=== PATIENT | female | born 1980 | race Caucasian/White ===

== ENCOUNTER 2018-12-01 08:35 | Emergency (ER) | payer OTHER, SELFPAY ==
[2018-12-01 08:39] VITALS: BP 200/102; PULSE 104; RESP 20; TEMP 37.8; O2SAT 98
--- NOTE | 2018-12-01 08:47 | ED.GENADUL_ITS ---
Discharge Plan Disposition Patient Disposition: HOME Condition: Good Discharge Details Chief Complaint: Urinary Clinical Impression: URI (upper respiratory infection), Dysuria Primary Care Provider: Patel Calvo ED Provider: Eloy Quintero Home Meds and New Rx's Prescriptions: New acetaminophen [Mapap Extra Strength] 500 MG tablet 1,000 mg PO Q6H 5 Days Qty: 60 RF: 0 cephalexin [Keflex] 500 mg capsule 500 mg PO BID Qty: 10 RF: 0 ibuprofen [Motrin IB] 200 MG tablet 600 mg PO Q6H 5 Days Qty: 60 RF: 0 No Action CENTRUM TABLET 1 EACH tablet 1 ea PO daily prn RF: 0 Discharge Instructions Instructions: Upper Respiratory Infection (ED), Dysuria (ED) Additional Instructions: Please hold off on taking the antibiotic for the next 48 hours. If you notice that your urinary pain continues during this time please go ahead and start the antibiotic however if you symptoms of urinary pain and upper respiratory symptoms improve over the next 48 hours do not take the antibiotic. If you notice any worsening of your symptoms, or any new symptoms such as vomiting, diarrhea, fever, chills, shortness of breath, chest pain, numbness, weakness, or fainting , please return immediately to the emergency department for reevaluation. Please follow up with your primary care provider as soon as possible for reassessment and reevaluation. As always, it was a pleasure participating in your medical care today. Referrals: Patel Calvo MD [Primary Care Provider] - Medical Decision Making This is a pleasant 38-year-old female who presents with 2 foci of complaints, one is URI-like symptoms as well as UTI symptoms. Upper respiratory symptoms show no signs or symptoms concerning for meningitis, URI-like symptoms are clinically consistent with influenza, we will check for this. We will give Tylenol and Motri she shows no signs of an acute abdomen. Additionally will check for urinary tract infection. I do feel her UTI symptoms are certainly complicated by her URI like symptoms. 9:22 AM Patient's influenza has returned negative, urinalysis shows minimal WBC elevation, but no nitrites or leuk esterase, I feel that it is inconsistent with notable UTI and definitely inconsistent with pyelonephritis. However because of her atypical combination of symptoms we will prescribe an antibiotic out of an abundance of precaution. Recommend that she hold off on taking this for the time being, if she noticed continuation or worsening of her urinary symptoms over the next 48 hours and she starts this. Otherwise recommend continued ibuprofen and Tylenol at home for control of fever, myalgias, and aches and pains. We have encouraged the patient to drink adequate fluids, and we discussed red flags which to return especially a concern for meningitis. I have extensively reviewed the treatment plan and discharge instructions with the patient and their family. I have addressed all patient concerns at this time. The patient and family was made aware of what symptoms to monitor for that would warrant a return to the emergency department. Discussed the plan with the patient and family, they demonstrate verbal understanding and agreement with our assessment and plan at this time. HPI General Date/Time Provider Initiated Documentation: 12/01/18 08:36 . HPI Narrative: This is a pleasant 38-year-old female with a past medical history of an appendectomy, , and urinary tract infection, last infection was greater than 6 months ago, and was positive for strep agalactiae. She presents today for 2 complaints of UTI symptoms and URI symptoms. Both of which began last evening. Patient states that she developed mild dysuria starting last night, minimal radiation to her flanks, she denies any history of kidney stones. She has mild burning, and she states that these symptoms are similar to her previous episodes of UTI in the past. She denies any other complaints in regards to this. In addition to this the patient complains of URI like symptoms that started last night, runny nose, cough, congestion, as well as mild fever. She has not taken any Tylenol or Motrin. She has had no vomiting or diarrhea. She is able to tolerate p.o. well. She has not gotten her flu shot this year. She denies any other complaints at this time. No other modifying factors. No recent surgery, no IV or illicit drug use, no pertinent family history. Related Data Home Medications Medication Instructions Recorded Confirmed Centrum Tablet 1 ea PO daily prn 08/14/13 12/01/18 acetaminophen [Mapap Extra 1,000 mg PO Q6H 5 Days #60 tab 12/01/18 Strength] cephalexin [Keflex] 500 mg PO BID #10 cap 12/01/18 ibuprofen [Motrin Ib] 600 mg PO Q6H 5 Days #60 tab 12/01/18 Previous Rx's Medication Instructions Recorded acetaminophen [Mapap Extra 1,000 mg PO Q6H 5 Days #60 tab 12/01/18 Strength] cephalexin [Keflex] 500 mg PO BID #10 cap 12/01/18 ibuprofen [Motrin Ib] 600 mg PO Q6H 5 Days #60 tab 12/01/18 Allergies Allergy/AdvReac Type Severity Reaction Status Date / Time Penicillins AdvReac Intermediate Nausea Verified 12/01/18 08:41 General Stated Complaint: Urinary DAVID: 3 Review of Systems Review of Systems All systems reviewed & are unremarkable except as noted in HPI and below PFSH Social History Smoking and Tabacco status: Never Exam Narrative Exam Narrative: 1.Const: Well-nourished, Well-developed, appearing stated age 2.Eyes: PERRL, no conjunctival injection, and symmetrical lids. 3.ENT: Atraumatic external nose and ears. Moist MM. Neck: Symmetric, trachea midline, No thyromegaly. No significant erythema in the posterior oropharynx. No tonsillar exudates. No tender cervical lymphadenopathy. Mild cobblestoning in the posterior oropharynx. Patient demonstrates good movement of cervical neck. There is no nuchal rigidity, no nuchal tenderness. Patient is able to flex the neck without any difficulty or significant pain. Negative Kernig's and Brudzinski sign. 4.CVS: +S1/S2, No murmurs or gallops. Peripheral pulses 2+ and equal in all e xtremities. Brisk capillary refill in all extremities. 5.RESP: Unlabored respiratory effort. Clear to auscultation bilaterally. No wheezes rales or rhonchi 6.GI: Soft, Nontender/Nondistended, No hepatosplenomegaly. No guarding or rebound. No abdominal tenderness to speak of. Mild left and right CVA tenderness. 7.MSK: Normocephalic/Atraumatic, Extremities w/o deformity or ttp No cyanosis or clubbing, Normal movement of all extremities 8.Skin: Warm, Dry. No rashes or lesions. 9.Neuro: audit consultant II-XII grossly intact. Sensation grossly intact, no focal neurologic deficits. 10.Psych: (AAO) x3. Appropriate mood and affect Course Vital Signs Temperature 37.8 C H 12/01/18 08:39 Pulse 104 H 12/01/18 08:39 Respiratory Rate 20 12/01/18 08:39 Blood Pressure 200/102 H 12/01/18 08:39 Pulse Oximetry 98 12/01/18 08:39 Temperature 37.8 C H 12/01/18 08:39 Temperature Source Temporal Artery Scan 12/01/18 08:39 Pulse 104 H 12/01/18 08:39 Respiratory Rate 20 12/01/18 08:39 Respiratory Effort Non-Labored 12/01/18 08:39 Blood Pressure 200/102 H 12/01/18 08:39 Blood Pressure Position Sitting 12/01/18 08:39 Pulse Oximetry 98 12/01/18 08:39 Oxygen Delivery Method Room Air 12/01/18 08:39 Oxygen Flow Rate 0 12/01/18 08:39 Pain Level 5 12/01/18 08:39
[2018-12-01 08:57] LABS: Bilirubin Negative (Negative); Blood Negative (Negative); Clarity Clear; Glucose Negative (Negative); Ketones Negative (Negative); Leukocyte Esterase Negative (Negative); Nitrite Negative (Negative); Specific Gravity 1.015 (1.005-1.025); Urobilinogen 0.2 EU/dL (Up TO 0.2)
[2018-12-01] MEDS: Acetaminophen 500 MG TAB 1000 MG PO (09:00)
[2018-12-01] MEDS: Ibuprofen 800 MG TAB PO (09:00)
[2018-12-01 09:14] LABS: Bacteria Few HPF (Negative); C & S Indicated? No; Casts Negative LPF (Negative); Crystals Negative HPF (Negative); Epithelial Cells Many HPF (Negative); Mucus Negative (Negative); RBC Negative (0-2); WBC 0-2 HPF (0-5)
[2018-12-01 09:25] VITALS: BP 170/99; PULSE 94; RESP 18; TEMP 38.8; O2SAT 96
[2018-12-01 18:48] VITALS: BP 155/90; PULSE 70; RESP 20; TEMP 36.8; O2SAT 98
== END 2018-12-01 09:34 | disposition home or self-care (01) ==
PROVIDERS: Emergency Provider Student in an Organized Health Care Education/Training Program; PCP Family Medicine
DX: R50.9 Fever, unspecified (principal); M79.10 Myalgia, unspecified site; R30.0 Dysuria; J06.9 Acute upper respiratory infection, unspecified; I10 Essential (primary) hypertension; Z87.440 Personal history of urinary (tract) infections
CPT/HCPCS: 81025; 87449; 99283; 81003; 81015

== ENCOUNTER 2018-12-03 06:56 | Emergency (ER) | payer OTHER, SELFPAY ==
[2018-12-03 07:06] VITALS: BP 169/112; PULSE 109; RESP 20; TEMP 38.5; O2SAT 96
--- NOTE | 2018-12-03 07:33 | DI.RAD_ITS ---
SYMPTOMS/DIAGNOSIS: COUGH, SHORTNESS OF BREATH, ? PNEUMONIA PA AND LATERAL CHEST: Comparison is made with [id number]. The cardiac and mediastinal contours have a normal appearance. The lungs are well inflated and clear. No infiltrate, effusion or pneumothorax is seen. IMPRESSION: Negative chest x-ray.
--- NOTE | 2018-12-03 07:39 | ED.GENADUL_ITS ---
Discharge Plan Disposition Patient Disposition: HOME Condition: Improving Discharge Details Chief Complaint: RespSymp Clinical Impression: Influenza Primary Care Provider: Patel Calvo ED Provider: Tommy Peacock Home Meds and New Rx's Prescriptions: New oseltamivir [Tamiflu] 75 mg capsule 75 mg PO BID 5 Days Qty: 10 RF: 0 Continued CENTRUM TABLET 1 EACH tablet 1 ea PO daily prn RF: 0 acetaminophen [Mapap Extra Strength] 500 MG tablet 1,000 mg PO Q6H 5 Days Qty: 60 RF: 0 cephalexin [Keflex] 500 mg capsule 500 mg PO BID Qty: 10 RF: 0 ibuprofen [Motrin IB] 200 MG tablet 600 mg PO Q6H 5 Days Qty: 60 RF: 0 Discharge Instructions Instructions: Influenza (ED) Additional Instructions: Frequent sips of fluids/popsicles to maintain hydration. Tylenol and/or Ibuprofen as needed for fever, aches and pains. Take Tamiflu as prescribed. Followup with regular doctor for recheck if not improving in 5-7 days. Return for any acute concerns. Medical Decision Making <Jane Vega DO - Last Filed: 12/03/18 08:18> 38-year-old female with a history of depression and hypertension who presents for fever, anterior chest pain, left upper and mid back pain, shortness of breath, pleuritic pain, sore throat, nausea and cough with white sputum for the past few days. She was seen here a few days ago for the same symptoms and diagnosed with URI and UTI but with indeterminate urinalysis and given Keflex for home if urinary symptoms or worsens. She states the urinary symptoms have since resolved. She has no DVT/PE risk factors. She has a temp of 101.3, heart rate of 109, blood pressure 169/112. She states she had been taking lisinopril in the past but stopped 2 years ago due to diet and weight control. Differential diagnosis includes pneumonia, influenza, PE, bronchitis, pharyngitis. As she had no lab work done 2 days ago and her symptoms are worsening, will place an IV, labs, urinalysis, d-dimer, rapid influenza again, rapid strep, chest x-ray and give a dose of Toradol, fluids Tylenol and albuterol neb and reassess. 0800 --case endorsed to Dr. Peacock to follow-up on labs and imaging. <Tommy Peacock MD - Last Filed: 12/03/18 09:39> REceived signout from Dr Vega. Patient with + Influenza. Remainder of diagnostics: Reassuring, negative d-dimer. Will treat with Tamiflu. Patient is improved, tolerating liquids and solids by mouth. ECG Data Attestation: I personally reviewed and interpreted this ECG (s) as follows: Interpretation: Sinus regular tachycardia with a rate of 110. HPI <Jane Vega DO - Last Filed: 12/03/18 08:18> General Mode of arrival: ambulatory . Date/Time Provider Initiated Documentation: 12/03/18 07:06 . Limitations to Documentation: no limitations . Information obtained by: patient . HPI Narrative: Patient is a 38-year-old female who presents with fever, back pain, chest pain, cough, shortness of breath and sore throat for the past 2 days. T-max 101.4 last night. Patient was seen here 2 days ago for the same complaint, had rapid influenza and diagnosed with URI/possible UTI with an indeterminate urinalysis and was sent home with Keflex for urinary symptoms worsened. Patient states her dysuria resolved but her left upper to mid back pain became worse. She states she did not start the Keflex. She states her chest pain is across her anterior chest, associated with shortness of breath, and worse when taking a deep breath. She also admits to some nausea with movement denies any vomiting or diarrhea. She also admits to sore throat and cough with white sputum. She states she has been eating and drinking okay. She denies any abdominal pain but states her abdomen feels full. She states her last dose of Tylenol was 8 PM last night. She denies any recent surgery, recent travel, leg pain or swelling or history of oral contraceptive use. Related Data Home Medications Medication Instructions Recorded Confirmed Centrum Tablet 1 ea PO daily prn 08/14/13 12/03/18 acetaminophen [Mapap Extra 1,000 mg PO Q6H 5 Days #60 tab 12/01/18 12/03/18 Strength] cephalexin [Keflex] 500 mg PO BID #10 cap 12/01/18 12/03/18 ibuprofen [Motrin IB] 600 mg PO Q6H 5 Days #60 tab 03/03/19 03/05/19 oseltamivir [Tamiflu] 75 mg PO BID 5 Days #10 cap 12/03/18 Previous Rx's Medication Instructions Recorded acetaminophen [Mapap Extra 1,000 mg PO Q6H 5 Days #60 tab 12/01/18 Strength] cephalexin [Keflex] 500 mg PO BID #10 cap 12/01/18 ibuprofen [Motrin IB] 600 mg PO Q6H 5 Days #60 tab 12/01/18 oseltamivir [Tamiflu] 75 mg PO BID 5 Days #10 cap 12/03/18 Allergies Allergy/AdvReac Type Severity Reaction Status Date / Time Penicillins AdvReac Intermediate Nausea Verified 12/03/18 07:09 General Stated Complaint: RespSymp DAVID: 3 Review of Systems <Jane Vega DO - Last Filed: 12/03/18 08:18> Review of Systems All systems reviewed & are unremarkable except as noted in HPI and below Constitutional Reports as per HPI, Reports chills and Reports fever(s) Eyes Denies blurry vision ENT Denies dizziness, Reports sore throat and Denies throat swelling Cardiovascular Denies chest pain and Denies dyspnea Respiratory Denies cough and Denies dyspnea Gastrointestinal Denies abdominal pain, Denies diarrhea and Denies vomiting Genitourinary Denies hematuria and Denies dysuria Musculoskeletal Denies back pain and Denies numbness Integumentary/Breasts Denies lesions and Denies rash Neurologic Denies dizziness, Denies focal weakness and Denies numbness Allergic/Immunologic Denies throat swelling PFSH <Jane Vega DO - Last Filed: 12/03/18 08:18> Medical History Depression (Chronic) HTN (hypertension) (Chronic) Surgical History H/O section (Chronic) History of appendectomy (Chronic) Social History Smoking and Tabacco status: Never alcohol intake: never substance use type: does not use Exam <Jane Vega DO - Last Filed: 12/03/18 08:18> Const General: cooperative and other (Appears uncomfortable) Orientation: alert and awake HENMT Head: normal to inspection Ears: hearing grossly normal bilaterally, external ears normal and TM's normal bilaterally General nose exam: external nose normal Face and sinus: normal facial exam Mouth: oral mucosae normal Teeth and gingiva: dentition normal Throat: posterior oropharynx normal Eyes General: appearance normal, both eyes and all related structures Eyelids: eyelids normal Pupils: PERRL EOM: EOM intact bilaterally Neck Neck: normal visual inspection Lymphatic: no lymphadenopathy noted Chest Chest: normal inspection of the chest Resp Effort & Inspection: normal respiratory effort and able to speak in complete sentences Auscultation: clear to auscultation bilaterally Cardio Rate: regular rate Rhythm: regular rhythm GI Inspection: normal to inspection Palpation: soft, not firm, no guarding, no hepatosplenomegaly, no masses and nontender Auscultation: normal bowel sounds Back/Spine/Pelvis Back: CVA tenderness (Left side) Skin General skin exam: no rashes or lesions noted Neuro General: alert and awake Cognition: normal cognition Speech: speech normal Gait: normal gait Motor: muscle tone normal throughout Sensory Exam: no sensory deficits noted Extrem General: normal to inspection, full ROM, normal capillary refill, no calf tenderness and no edema Psych Appearance: grossly normal Mental Status: mental status grossly normal Speech and Movement: speech and movement normal Affect: normal affect Thought Process: normal Course <Jane Vega, DO - Last Filed: 12/03/18 08:18> Vital Signs Temperature 101.3 F H 12/03/18 07:06 Pulse 109 H 12/03/18 07:06 Respiratory Rate 20 12/03/18 07:06 Blood Pressure 169/112 H 12/03/18 07:06 Pulse Oximetry 96 12/03/18 07:06 Temperature 101.3 F H 12/03/18 07:06 Temperature Source Skin 12/03/18 07:06 Pulse 109 H 12/03/18 07:06 Respiratory Rate 20 12/03/18 07:06 Respiratory Effort Non-Labored 12/03/18 07:11 Respiratory Depth Normal 12/03/18 07:11 Blood Pressure 169/112 H 12/03/18 07:06 Blood Pressure Position Sitting 12/03/18 07:06 Pulse Oximetry 96 12/03/18 07:06 Oxygen Delivery Method Room Air 12/03/18 07:06 Oxygen Flow Rate 0 12/03/18 07:06 Pain Level 6 12/03/18 07:06 Sign Out <Jane Vega DO - Last Filed: 12/03/18 08:18> Sign Out Data: Sign Out Comment: follow up on labs and imaging and final disposition Last updated by Jane Vega DO at 12/03/18 08:02
[2018-12-03] MEDS: Normal Saline 1,000 ML 1000 ML IV (07:55)
[2018-12-03 08:00] LABS: Bilirubin Negative (Negative); Blood Negative (Negative); Clarity Clear; Glucose Negative (Negative); Ketones Negative (Negative); Leukocyte Esterase Negative (Negative); Nitrite Negative (Negative); Urobilinogen 0.2 EU/dL (Up TO 0.2)
[2018-12-03] MEDS: Acetaminophen 500 MG TAB 1000 MG PO (08:03)
[2018-12-03] MEDS: Ketorolac 30 MG/ML VIAL IVP (08:03)
[2018-12-03 08:04] VITALS: RESP 1
[2018-12-03] MEDS: Albuterol/Ipratropium 3 ML UPD VIAL UPD (08:04)
[2018-12-03 08:11] LABS: Bacteria Few HPF (Negative); C & S Indicated? No; Casts Negative LPF (Negative); Crystals Negative HPF (Negative); Epithelial Cells Moderate HPF (Negative); Mucus Moderate (Negative); RBC Negative (0-2); WBC 0-2 HPF (0-5)
[2018-12-03 08:33] LABS: ALT 27 U/L (12-78); AST 36 U/L (15-37); Albumin 3.6 g/dL (3.4-5.0); Alkaline Phosphatase 78 U/L (46-116); Anion Gap 10.8 mmol/L (3-11); BUN 9 mg/dL (7-18); Bilirubin, Total 0.2 mg/dL (0.2-1.0); CO2 28.2 mmol/L (21.0-32.0); Calcium 8.3 mg/dL (8.5-10.1); Chloride 101 mmol/L (98-107); Glucose 107 mg/dL (70-100); Magnesium 1.9 mg/dL (1.8-2.4); Potassium 3.9 mmol/L (3.5-5.1); Sodium 140 mmol/L (136-145); Total Protein 7.7 g/dL (6.4-8.2)
[2018-12-03 08:34] VITALS: RESP 2
[2018-12-03 08:34] LABS: Troponin I < 0.02 ng/mL (0.00-0.06)
--- NOTE | 2018-12-03 08:38 | DI.VRAD_ITS ---
EXAM: XR Chest, 2 Views EXAM DATE/TIME: 12/03/2018 8:26 AM CLINICAL HISTORY: 38 years old, female; Signs and symptoms; Other: Cough, SOB R/O pneumonia TECHNIQUE: XR of the chest, 2 views. COMPARISON: CR CHEST 2 VIEWS PA,LAT 01/05/2017 2:05 PM FINDINGS: No airspace consolidation, pleural effusion or pneumothorax. The cardiomediastinal silhouette is unremarkable. IMPRESSION: No acute findings. Dictated and Authenticated by: Fermin Deluna MD. Ordering:BEA Lara MD
[2018-12-03 09:12] LABS: Abs Immature Grans 0.01 k/cumm (0.0-0.09); Absolute Basophil Count 0.02 k/cumm (0.0-0.2); Absolute Eosinophil Count 0.07 k/cumm (0.0-0.7); Absolute Lymphocyte Count 0.48 k/cumm (1.2-3.4); Absolute Neutrophil Count 3.55 k/cumm (1.2-6.7); Basophils % 0.4; Eosinophils % 1.5; HGB 11.1 g/dL (12.0-15.5); Immature Grans % 0.2; Lymphocytes % 10.1; Mean Corpuscular Hemoglobin 20.2 pg (27.0-33.0); Mean Corpuscular Volume 67.4 fL (80-95); Mean Platelet Volume 10.5 fL (8.0-11.0); Monocytes % 12.7; Neutrophils % 75.1; Platelet Count 325 x1000/uL (130-400); RBC 5.49 m/cumm (4.00-5.20); RBC Distribution Width 18.6 % (11.7-14.6); White Blood Cell Count 4.73 k/cumm (4.4-10.8)
[2018-12-03 09:27] LABS: Anisocytosis 1+; Diff Comment RBC Morph Reviewed; Hypochromasia 1+; Microcytosis 2+
[2018-12-03 09:28] LABS: Poikilocytes 1+
[2018-12-03 09:33] LABS: D-Dimer 425 ng/mlFEU (<500)
[2018-12-03 09:45] VITALS: BP 156/90; PULSE 111; RESP 16; TEMP 37.8; O2SAT 96
== END 2018-12-03 10:18 | disposition home or self-care (01) ==
PROVIDERS: Physician Assistant; Emergency Provider Emergency Medicine; PCP Family Medicine
DX: J10.1 Influenza due to other identified influenza virus with other respiratory manifestations (principal); I10 Essential (primary) hypertension
CPT/HCPCS: 36415; 80053; 81025; 87449; 87880; 93005; 94640; 96361; 96374; 99285; 71046; 81003; 81015; 83735; 84484; 85025; 85379; 87081; 93010; J1885; J7620

== ENCOUNTER 2022-03-28 02:32 | Outpatient (CLI) | payer OTHER, SELFPAY ==
[2022-03-28 08:26] LABS: Hemoglobin A1C 5.8 % (<5.7)
[2022-03-28 09:10] LABS: ALT 33 U/L (14-59); AST 22 U/L (15-37); Albumin 3.6 g/dL (3.4-5.0); Alkaline Phosphatase 63 U/L (46-116); Anion Gap 5.9 mmol/L (3-11); BUN 17 mg/dL (7-18); Bilirubin, Total 0.5 mg/dL (0.2-1.0); CO2 30.1 mmol/L (21.0-32.0); CREATININE 0.9 mg/dL (0.55-1.02); Calcium 8.6 mg/dL (8.5-10.1); Calculated LDL 102 mg/dL (<100); Chloride 103 mmol/L (98-107); Cholesterol 168 mg/dL (<200); Glucose 106 mg/dL (74-106); HDL Cholesterol 34 mg/dL (40-60); Potassium 4.1 mmol/L (3.5-5.1); Sodium 139 mmol/L (136-145); Triglyceride 162 mg/dL (<150)
== END 2022-03-28 02:33 | disposition home or self-care (01) ==
PROVIDERS: PCP Nurse Practitioner Family; Visit Provider Nurse Practitioner Family
DX: I10 Essential (primary) hypertension (principal); Z13.1 Encounter for screening for diabetes mellitus; Z13.220 Encounter for screening for lipoid disorders
CPT/HCPCS: 36415; 80053; 80061; 83036

== ENCOUNTER 2022-12-12 02:21 | Outpatient (CLI) | payer BC, SELFPAY ==
[2022-12-12 08:43] LABS: Estimated GFR 72.58 (mL/min/1.73m2); Potassium 4.3 mmol/L (3.5-5.1); TSH (W/Ref FT4) 1.57 uIU/mL (0.36-3.74)
== END 2022-12-12 02:22 | disposition home or self-care (01) ==
PROVIDERS: PCP Nurse Practitioner Family; Visit Provider Nurse Practitioner Family
DX: I10 Essential (primary) hypertension (principal); R53.83 Other fatigue; R73.03 Prediabetes
CPT/HCPCS: 36415; 82565; 83036; 84132; 84443

== ENCOUNTER 2024-11-27 01:46 | Outpatient (CLI) | payer OTHER, SELFPAY ==
--- NOTE | 2024-11-27 08:19 | DI.RAD_ITS ---
Exam(s) XR HIP LT COMPLETE AP PELVIS EXAM: XR HIP LT COMPLETE AP PELVIS CLINICAL HISTORY: Chronic, worsening lt hip pain, m25.552. TECHNIQUE: 2D digital imaging was performed. Two views. COMPARISON: No exams were available for comparison FINDINGS: BONES: No acute fracture is present. No bony destructive lesion is seen. JOINTS: No dislocation present. The SI joints and pubic symphysis are intact. Moderate to severe deg enerative changes of the superior left hip joint space. There is spurring from the acetabulum, great er inferiorly. There are hip joint spaces maintained. SI joints are unremarkable. SOFT TISSUE: Normal. IMPRESSION: Moderate to severe degenerative changes of the left hip. DATA REPOSITORY: RADIATION DOSE DELIVERED:
== END 2024-11-27 02:06 ==
PROVIDERS: PCP Nurse Practitioner Family; Visit Provider Nurse Practitioner Family
DX: M16.12 Unilateral primary osteoarthritis, left hip (principal)
CPT/HCPCS: 73502

== ENCOUNTER 2025-03-27 00:41 | Outpatient (CLI) | payer OTHER, SELFPAY ==
[2025-03-27 09:56] LABS: HCT 35.1 % (36.0-46.0); HGB 10.3 g/dL (11.2-15.7); MCH 20.8 pg (27.0-33.0); MCHC 29.3 % (32.0-36.0); MPV 9.5 fL (8.0-11.0); Platelet Count 386 10^3/uL (130-400); RBC 4.95 10^6/uL (3.93-5.22); RDW 17.8 % (11.7-14.6); RDW-SD 44.4 fL; WBC 8.54 10^3/uL (4.4-10.8)
[2025-03-27 10:05] LABS: MCV 71 fL (80-95)
[2025-03-27 10:41] LABS: Anion Gap 9.8 mmol/L (3-11); BUN 19 mg/dL (7-18); CO2 26.2 mmol/L (21.0-32.0); CREATININE 0.9 mg/dL (0.55-1.02); Calcium 9.5 mg/dL (8.5-10.1); Chloride 103 mmol/L (98-107); Estimated GFR 81.35 (mL/min/1.73m2); Glucose 99 mg/dL (74-106); Potassium 4.5 mmol/L (3.5-5.1); Sodium 139 mmol/L (136-145)
== END 2025-03-27 00:42 | disposition home or self-care (01) ==
LOC: LBO 00:42
PROVIDERS: PCP Nurse Practitioner Family; Visit Provider Student in an Organized Health Care Education/Training Program
DX: M16.12 Unilateral primary osteoarthritis, left hip (principal); Z01.818 Encounter for other preprocedural examination
CPT/HCPCS: 36415; 80048; 85027

== ENCOUNTER 2025-03-27 09:58 | Outpatient (CLI) | payer OTHER, SELFPAY ==
--- NOTE | 2025-03-27 08:15 | DI.RAD_ITS ---
Exam(s) XR PELVIS AP EXAM: XR PELVIS AP CLINICAL HISTORY: PRE OP L CINDI. TECHNIQUE: 2D digital imaging was performed.One images were obtained. COMPARISON: CR XR HIP LT COMPLETE AP PELVIS from 11/27/2024 FINDINGS: BONES: No acute fracture is present. No bony destructive lesion is seen. JOINTS: No dislocation present. There is again seen marked degenerative changes of the left hip with loss of the superior joint space which is bone on bone. SOFT TISSUE: Normal. IMPRESSION: Marked osteoarthritis of the left hip. DATA REPOSITORY: RADIATION DOSE DELIVERED:
== END 2025-03-27 09:59 | disposition home or self-care (01) ==
LOC: DIORS 09:58
PROVIDERS: PCP Nurse Practitioner Family; Visit Provider Physician Assistant
DX: M16.12 Unilateral primary osteoarthritis, left hip (principal)
CPT/HCPCS: 72170

== ENCOUNTER 2025-04-08 10:18 | Day surgery (SDC) | payer OTHER, SELFPAY ==
[2025-04-08] VITALS (29 sets, daily range): BP systolic 78–136; BP diastolic 45–74; PULSE 60–103; RESP 10–24; TEMP 36–36.5; O2SAT 91–100; BMI 47.6
[2025-04-08] MEDS: Celecoxib 200 MG CAP 400 MG PO (10:52)
[2025-04-08] MEDS: Acetaminophen 500 MG TAB 1000 MG PO (10:52)
[2025-04-08] MEDS: Lactated Ringers 1,000 ML 80 ML IV (11:04)
--- NOTE | 2025-04-08 11:20 | ANES.PREOP_ITS ---
General Info Date of Service Date Performed: 04/08/25 Height: 5 ft 8 in Weight: 142 kg Body Mass Index (BMI): 47.6 Surgical Procedure: Operation Date: 04/08/25 14:05 Proposed Procedure Side Surgeon p Hip Total Hip Anterior, ACTIS Left Andrew Garcia MD Meds Allergies and Home Medications Allergies Allergy/AdvReac Type Severity Reaction Status Date / Time Penicillins AdvReac Intermediate Nausea Verified 04/08/25 10:50 Home Medication ?Medication ?Instructions ?Recorded inhalational spacing device #1 ea 01/20/23 (Aerochamber MV spacer) albuterol sulfate 90 mcg/actuation 2 puff inhalation 6 XD PRN 11/26/24 aerosol inhaler shortness of breath or wheez ing #8.5 grams triamcinolone acetonide 0.1 % 1 applic topical BID #30 grams 11/26/24 topical cream citalopram 20 mg tablet 30 mg PO HS 04/06/25 lisinopril 30 mg tablet 30 mg PO HS 04/06/25 Current Visit Medications: Current Medications Generic Name Dose Route Start Last Admin Trade Name Jeanq PRN Reason Stop Dose Admin Acetaminophen 1,000 mg 04/08/25 06:00 04/08/25 10:52 Acetaminophen 500 Mg Tab PO 04/08/25 23:59 1,000 mg PREOP RUFINO Administration Celecoxib 400 mg 04/08/25 06:00 04/08/25 10:52 Celecoxib 200 Mg Cap PO 04/08/25 23:59 400 mg PREOP RUFINO Administration Ringer's Solution 1,000 mls @ 80 mls/hr 04/08/25 06:00 04/08/25 11:04 IV 04/08/25 23:59 80 mls/hr INFUSION RUFINO Administration Cefazolin Sodium 3,000 mg/ 100 mls @ 200 mls/hr 04/08/25 06:00 Sodium Chloride IV 04/08/25 23:59 PREOP RUFINO Tranexamic Acid/Sodium Chloride 1,000 mg in 100 mls @ 600 mls/hr 04/08/25 06:00 IVPB 04/08/25 23:59 PREOP RUFINO IV Miscellaneous Supplies 1 each 04/08/25 06:00 Iv Access IV 04/08/25 23:59 DIRECTED RUFINO Sodium Chloride 0 ml 04/08/25 06:00 Normal Saline Flush 10 Ml Syr IV 04/08/25 23:59 PRN PRN Sodium Chloride 0 ml 04/08/25 06:00 Normal Saline 10 Ml Vial IJ 04/08/25 23:59 DIRECTED PRN Sterile Water 0 ml 04/08/25 06:00 Water,Injection,Sterile 10 Ml Vial IJ 04/08/25 23:59 DIRECTED PRN PFSH Active Problems Active Problems: Problem Status Onset Code Osteoarthritis of left hip Acute M16.12 Left hip pain Acute M25.552 URI (upper respiratory infection) Acute J06.9 Pre-diabetes Acute R73.03 Fatigue Acute R53.83 Obesity Chronic E66.9 Eczema Acute L30.9 Insomnia Acute G47.00 Anxiety Chronic F41.9 Depression Chronic F32.9 Hypertension Chronic I10 Medical History Medical History Depression HTN (hypertension) Acute appendicitis (05/06/13) Llaparoscopic appendectomy by Dr.Terry Akins 05-06-2013 Surgical History Surgical History History of appendectomy H/O section Tobacco Smoking/Tobacco Use Status: Never Passive smoking exposure: Yes Second hand exposure: Yes Alcohol Alcohol Intake: former Substance Use Substance use: Never Substance use type: does not use Vital Signs and Lab Results Vital Signs Most Recent Vital Signs in EMR: Most Recent Vital Signs Temp Pulse Resp BP Pulse Ox 36.5 C 100 H 16 136/74 96 04/08/25 10:33 04/08/25 10:33 04/08/25 10:33 04/08/25 10:33 04/08/25 10:33 Point of Care Results Point of Care Results: POC- Test(urine) Negative 04/08/25 10:49 Lab Results Complete Blood Count: WBC, (4.4-10.8) 8.54 10^3/uL 03/27/25, 09:50 RBC, (3.93-5.22) 4.95 10^6/uL 03/27/25, 09:50 Hgb, (11.2-15.7) 10.3 g/dL L 03/27/25, 09:50 Hct, (36.0-46.0) 35.1 % L 03/27/25, 09:50 Plt Count, (130-400) 386 10^3/uL 03/27/25, 09:50 Complete Metabolic Panel: Sodium, (136-145) 139 mmol/L 03/27/25, 09:50 Potassium, (3.5-5.1) 4.5 mmol/L 03/27/25, 09:50 Chloride, (98-107) 103 mmol/L 03/27/25, 09:50 Carbon Dioxide, (21.0-32.0) 26.2 mmol/L 03/27/25, 09 :50 BUN, (7-18) 19 mg/dL H 03/27/25, 09:50 Creatinine, (0.55-1.02) 0.9 mg/dL 03/27/25, 09:50 Est GFR (CKD-EPI 2020), (mL/min/1.73m2) 81.35 03/27/25, 09:50 Calcium, (8.5-10.1) 9.5 mg/dL 03/27/25, 09:50 Glucose, (74-106) 99 mg/dL 03/27/25, 09:50 Hemoglobin A1c, (4.5-5.7) 5.7 % 03/13/25, 09:0 7 Anesthesia Assessment and Plan Anesthesia History Personal History: No History of Anesthesia Complications Family History: No Family History of Anesthesia Complications Exercise Tolerance Exercise Tolerance: Metabolic Equivalents>4 Pertinent Negatives Pertinent Negatives: No Symptoms of GERD, No Major Cardiovascular Symptoms or Complaints and No Major Pulmonary Symptoms or Complaints Cardiac & Pulmonary Exam Cardiac Exam: Normal S1/S2 Heart Sounds Pulmonary Exam: Clear Bilateral Breath Sounds Implantable Cardiac Device Does patient have a Pacemaker or an ICD?: No Airway Exam Known Difficult Airway: No Mallampati Class: 2 Mouth Opening: Normal (> 3cm) Thyromental Distance: Greater than 3 cm Neck Range of Motion: Full ROM Neck Circumference: Thick Teeth Condition: Normal Dentition ASA Classification ASA Score: ASA 3 Emergency Case?: No NPO Status NPO Status: NPO Clears >2 hours, Solids >8 hours Status Status: Negative HCG Anesthesia Plan Resuscitation Status: Full Code Anesthesia Technique: Spinal Anesthesia Airway Planned: Natural Airway Monitors Used: Standard Monitors
--- NOTE | 2025-04-08 12:08 | PDOC.DSDIS_ITS ---
Date of service: 04/08/25 Discharge Plan Disposition Patient Disposition: Home Condition: Good Discharge Details Reason For Visit: L THR Attending Provider: Andrew Garcia Primary Care Provider: Pravin Deal Home Meds and New Rx's Prescriptions: New acetaminophen 500 mg tablet 1,000 mg PO TID Qty: 90 3RF aspirin 81 mg tablet,delayed release (DR/EC) 81 mg PO BID Qty: 60 0RF celecoxib 200 mg capsule 200 mg PO BID Qty: 60 0RF dexamethasone 4 mg tablet 4 mg PO DAILY Qty: 2 0RF docusate sodium 100 mg capsule 100 mg PO BID PRNQty: 28 0RF pantoprazole 40 mg tablet,delayed release (DR/EC) 40 mg PO DAILY Qty: 14 0RF oxycodone 5 mg tablet 5 mg PO Q4H MDD 6 tabs PRN (Reason: pain) Qty: 12 0RF Continued (DME) Aerochamber MV Spacer See Rx Instructions .Route Qty: 1 0RF Rx Instructions: As directed triamcinolone acetonide 0.1 % cream 1 applic topical BID Qty: 30 1RF albuterol sulfate 90 mcg/actuation HFA aerosol inhaler 2 puff inhalation 6XD PRN (Reason: shortness of breath or wheezing) Qty: 8.5 0RF citalopram 20 mg tablet 30 mg PO HS lisinopril 30 mg tablet 30 mg PO HS Discharge Instructions Additional Instructions: Total Hip Discharge Instructions Activity: The most important activity is to walk. You should try to take short walks a few times a day. You have no restrictions on movement or positioning, but do not try to force what you do. You will find some stiffness and weakness with hip flexion (lifting your knee). Do not try to strengthen this too early, continue to practice walking and stairs and this will come. - Outpatient physical therapy can be helpful to help return you to a normal gait and improve your flexibility and strength. This can start around 2 weeks. For some patients, it?s not necessary. Usually this is determined at the time of discharge or at the first post-operative visit. - You should wear the SULEIMAN hose on both legs for 2 weeks. Dressing: Keep the surgical dressing in place for at least one week. After the first week it may be removed and replace with light gauze and tape or nothing. It may get wet after 3 days but avoid soaking the dressing. If it gets wet, just lightly pat dry. It is important to always keep some gauze between skin folds, especially when you are sitting. Spend some time with the wound exposed when you are lying flat as the incision does wrinkle onto itself. Medications: - You should take Tylenol and an anti-inflammatory Celebrex as your primary pain control medications. If the Celebrex is too expensive or not covered, please call the office for another alternative (Advil/Ibuprofen or Naproxen/Aleve). - You have been prescribed a stronger pain medication Oxycodone for breakthrough pain, take as needed as prescribed. - You have also been prescribed a stomach acid reduction agent Pantoprozole to help reduce stomach acid and reflux. - You have also been prescribed Decadron to help with post-operative nausea and pain. You will take this for two days starting tomorrow. - You will be taking Aspirin 81mg twice a day for DVT prevention unless instructed otherwise. - If you have constipation you should take Colace or Miralax (both [id number]). It takes most people 3-4 days to have a bowel movement. Follow-up: 2 weeks If you have any acute concerns or questions, please do not hesitate to contact the office at [phone]. You may contact Dr. Garcia with any questions after hours through the hospital at [phone] or on his cell phone at [phone]. Stand Alone Forms: Anesthesia Discharge Inst., Hedy Carvajal (U) Referrals: Andrew Garcia MD [ [facility] STAFF PHYSICIAN, Orthopaedic Surgical] Equipment/Supplies: Walker Activity:: Activity as Tolerated Shower/Bathe:: 72 hours Diet:: As Tolerated Discharge Orders Discharge Orders: Discharge Order (Routine); Ordered 04/08/25 Ordered By: Fredi Guillermo DS: Diagnosis Discharge Diagnosis (1) Osteoarthritis of left hip: Status: Acute
[2025-04-08] MEDS: ceFAZolin 3,000 MG in Normal Saline 100 ML 200 MG IV (12:46)
[2025-04-08] MEDS: TRANEXAMIC ACID/SOD. CHL. 1,000 MG/100 ML BAG 600 MG IVPB (13:01)
--- NOTE | 2025-04-08 14:08 | DI.RAD_ITS ---
Exam(s) XR HIP LT IN OR EXAM: XR HIP LT IN OR CLINICAL HISTORY: Osteoarthritis of left hip. TECHNIQUE: 2D and realtime digital imaging was performed. COMPARISON: No exams were available for comparison FINDINGS: Hard copy images show placement of a left hip prosthesis. The alignment appears satisfactory. Please see procedure note for details. Fluoro time: 31.2seconds RADIATION DOSE DELIVERED: Ka,r=8.85 mGy
[2025-04-08] MEDS: fentaNYL 100 MCG/2 ML VIAL IVP ×2 (14:47→14:54)
--- NOTE | 2025-04-08 15:08 | ROE_ITS ---
Operative Note Operative Note PRE-OP DIAGNOSIS: Left Hip Osteoarthritis POST-OP DIAGNOSIS: same PROCEDURE: Left Anterior Total Hip Arthroplasty with Intraoperative Navigation SURGEON: Andrew Garcia DIRECTOR OF RESPIRATORY THERAPY: Fredi Guillermo ANESTHESIA TYPE: Spinal Refer to Anesthesia Record ESTIMATED BLOOD LOSS: 200 PATHOLOGY: none sent TOURNIQUET TIME: 0 COMPLICATIONS: None Patient was transported to: PACU Patient's condition: stable Implants: 1. Depuy Bradford Acetabular Component, 54mm 2. Depuy Acetabular Liner, [id number] 3. Depuy Actis Standard Collared Femoral Stem, Size 4 4. Depuy Altrx Ceramic Femoral Head, Size 36+5mm Indications: I have seen Kavya in clinic for symptoms of hip arthritis, confirmed with radiographic findings. She has exhausted nonoperative methods and was having significant limitations in daily function and desired better function and less pain. I discussed the technical details of a hip replacement. I explained the risks of the procedure to include, but not limited to, bleeding, infection, pain, stiffness, fracture, damage to nerves and vessels, damage to muscles and tendons, loosening, instability, leg length inequality, need for repeat procedure, blood clot and cardiopulmonary demise. Despite these risks, Kavya elected to proceed. Findings: There was significant signs of arthritis throughout the hip. Exposure and approach to the hip was challenging and limited given the patient's habitus. Procedure Description: Kavya was greeted in the preoperative holding area where the correct side was identified and marked. The consent was reviewed with the patient and signed. The history and physical was updated. All questions were answered. She was taken back to the operating room. A spinal anesthestic was then administered. The feet were wrapped with cast padding and Coban and then placed into the boot liners and then into the boots. Care was taken to protect the skin and make sure the heels were fully down and the boots were stable. The patient was then positioned onto the HANA table. Both legs were held in a neutral position. SCDs were applied. The patient was then slid down onto a peroneal post. Her pannus was moved to the right side and held over with Ioband against an attached bracket. Prophylactic antibiotics in the form of Cefazolin were administered. 1g of Tranxemic Acid was given intravenously within 30 minutes of incision. The left leg was then prepped with Chloraprep and draped in a standard fashion. A second prep with Chloraprep was performed prior to placement of a shower-curtain type drape with Iodine impregnated skin protection. A timeout to confirm correct identity, side and site, procedure, allergies, anesthesia, and medical concerns was performed. An obliquely oriented incision was made starting lateral to the ASIS and running distal over the Tensor Fascia Dara (TFL) muscle belly toward the fibular head, approximately 10cm. The skin and soft tissue was dissected sharply, through Sandra?s fascia, and to the fascia of the TFL. With the fascia and superior border of the IT band identified, the fascia was incised with a new knife just above any perforators from the IT band. The TFL muscle belly was bluntly dissected away from the fascia and moved laterally. The fat between TFL and rectus was identified to ensure the dissection was not within the TFL. Blunt dissection created space between abductors and the capsule and retractor was placed over the lateral femoral neck. The fibers of the rectus femoris tendon were identified and these were freed from the anterior capsule. A second cobra retractor was placed around the medial femoral neck. The TFL was further retracted laterally to show the deep fascia. Careful dissection through this layer identified three main crossing vessels of the lateral femoral circumflex. These were cauterized in multiple locations and then cut without any noticeable bleeding. The TFL was further released bluntly from the deep fascia to expose anterior hip capsule and fat The soft tissue orthopaedic retractor was then placed beneath the TFL and against sartorius and medial soft tissues to protect and retract the soft tissues. Access to the hip was challenging given the large pannus which deflected anterior and proximal retractors. A T-capsulotomy was then performed starting at the superior lateral acetabulum and moving distally to the intertrochanteric ridge. These capsular flaps were tagged with a No. 1 Vicryl and elevated from within. The capsular flaps were released to the shoulder of the lateral neck and to the lesser trochanter to give excellent visualization of the proximal femur. A neck osteotomy was performed using an oscillating saw based on preoperative templates. This cut started in the shoulder and of the lateral neck and exited medially. The saw was at all times directed medially to avoid injury to the greater trochanter. Gross traction was applied to the leg and the osteotomy opened. The femoral head was removed with a corkscrew, making sure to protect the TFL on its exit. Traction was released after head removal. This was measured on the back table to determine the starting reamer size. Portions of the rectus obscuring visualization were minimally elevated off the superior acetabulum. An anterior retractor was placed over the anterior wall between capsule and labrum and attached to the Gripper retraction system. The femur was rotated to 90 degrees and medial capsule was fully released until the lesser trochanter was palpable and visible; the femur was returned to 30 degrees. A posterior retractor was placed similarly between capsule and labrum. This provided excellent visualization. The contents of the cotyloid fossa were removed with electrocautery and the labrum was removed with a knife. There was a notable floor osteophyte. There was significant chondromalacia of the superior acetabulum. Acetabular reaming began with a 49mm reamer. This first reaming was directed anterior to posterior and medial to get down to the true floor. This was inspected and reamed until the true floor was reached. The anterior retractor was then released and entry and exit was provided by traction on the capsular flaps. I then reamed sequentially up to a 54mm reamer where good fit was obtained. The larger reamers were oriented based on anatomical reference of the anterior and lateral meza to ensure proper abduction and anteversion. Positioning and size was confirmed with the fluoroscopy. A 54mm Depuy Bradford acetabular component was selected. The acetabulum was reamed around the periphery with the selected acetabular size to prevent a rim fit. The deep tissues were irrigated. The acetabular component was then impacted in a position of about 40-45 degrees of abduction and 15-20 degrees of anteversion, using the patient?s anatomy as the ultimate landmark. Fluoroscopy was used to confirm this. There was excellent manager utilization of the acetabular component and the inserting handle was removed. The acetabular liner, Depuy [id number] polyethylene liner, was inserted and lined up with the tines of the acetabular component. There was no soft tissue interposition. The liner was then impacted into position and confirmed to be well-seated. A portion of the hiro-articular cocktail was then injected around the acetabulum into the capsule and periosteum. This cocktail consisted of 123mg of Ropivacaine, 0.25mg of Epinephrine, 0.04mg of Clonidine, and 15mg of Ketorolac, diluted to 50cc. The leg was rotated to 120 degrees. Any remaining medial capsule was released until the lesser trochanter was easily palpable. A retractor was placed medially. The lateral capsule was further released into the shoulder to allow access to the greater trochanter. A Sy retractor was placed over the greater trochanter which allowed the trochanter to flip in front of the capsule for excellent exposure. The leg was brought down into maximal extension and 20 degrees of adduction while ensuring there was no impingement on the acetabulum. Any remnant capsule within the trochanter was released. Piriformis and obturator externis were identified and protected. There was excellent access to the proximal femur. The lateral neck remnant was removed with a rongeur. A blunt canal probe was used to identify the canal and trajectory for later broaching. A box osteotome initiated the broach course. A small curved rasp and a curved curette were used to work laterally. Broaching then began with a starter Actis broach. This was inserted manually around the trochanter and into the canal before mallet blows. The broach was seated to a few millimeters below the cut level based on the neck cut and the preoperative template. Sequential broaching was continued with the [employer] pneumatic broaching device until a tight fit was obtained with good rotational control of the femur. A trial standard neck was inserted along with a +1.5 trial head. The leg was brought out of extension and adduction and then reduced with traction and internal rotation. The leg was stable anteriorly in a position of 30 degrees of extension and 90 degrees of external rotation. Fluoroscopy was used to ensure there was no fracture and the stem was seated well. Leg lengths were checked with an AP pelvis and pelvic reference points. [employer] navigation system was used to confirm appropriate positioning and leg length and offset. Based on this, the broach was advanced approximately 2 to 3 mm and I increased the head to a +5 mm head. Once content with the desired offset and leg lengths, the leg was brought back into extension, external rotation and adduction. The periosteum and surrounding tissue was injected with remaining portion of the hiro-articular cocktail. The proximal femur was irrigated as well as the deep tissues. The Bebitosuy Actis standard collared stem, size 4, was then manually inserted into the proximal femur making sure to control rotation. It was then malleted into position with light blows, giving breaks to allow bone expansion and decrease risk of fracture. The selected Depuy Altrx Ceramic Head, size 36+5mm, was then placed onto the clean and dry trunnion and secured with impac tion onto the tapered fit. The leg was brought back out of extension and adduction and reduced with traction and internal rotation. Stability was confirmed with no shuck at 90 degrees of external rotation and 30 degrees of extension. No impingement through range of motion arc. Final x-ray images were obtained with fluoroscopy to confirm adequate positioning and no intraoperative fracture. The deep tissues were thoroughly irrigated with Surgiphor, betadine solution. This was allowed to sit in the wound for 3 minutes before being thoroughly irrigated out with normal saline. The capsule was then reapproximated with the previously placed sutures. The TFL fascia was finally closed with a No. 2 Stratafix, barbed suture. Deep tissues were then reapproximated with 0 Vicryl and a running 2-0 Vicryl. The skin was closed with a running 4-0 Monocryl in a subcuticular fashion. This was reinforced with skin glue. A Mepilex silver dressing was applied. At the end of the case, all counts were correct. Kavya was transferred to the hospital bed without difficulty and suffering no apparent complication. She has a good prognosis. Physical therapy will start today and without restr ictions, weight-bearing as tolerated. Aspirin 81mg BID will be used for DVT prophylaxis. Date of Procedure: 04/08/25
[2025-04-08] MEDS: ePHEDrine 25 MG/5 ML Syringe ×2 (15:47→15:52)
[2025-04-08] MEDS: oxyCODONE 5 MG TAB PO ×2 (16:02→20:30)
[2025-04-08] MEDS: Ketorolac 15 MG/ML VIAL IVP (16:06)
[2025-04-08] MEDS: LORazepam 20 MG/10 ML VIAL IVP (16:42)
--- NOTE | 2025-04-08 17:08 | W.ANESPOSTOP ---
Postoperative Evaluation Date, Time and Location Date Performed: 04/08/25 Time Performed: 17:08 Patient Location: Day Surgery Unit Vital Signs Most Recent Imported Vital Signs: Most Recent Vital Signs Temp Pulse Resp BP Pulse Ox 36 C L 60 16 99/64 L 100 04/08/25 16:13 04/08/25 17:03 04/08/25 16:13 04/08/25 17:03 04/08/25 16:13 Pain Score Most Recent Pain Score: Most Recent Pain Score Pain Level 4 04/08/25 17:03 Assessment Mental Status: Awake (Alert & Oriented to Patient Baseline) Airway and Respiratory Function: Patent airway with normal (patient baseline) respiratory exam Cardiovascular Function: Hemodynamically Stable Hydration Status: Adequately Hydrated Nausea & Vomiting: No Nausea or Vomiting Pain: Pain is Moderate or Severe Postoperative Pain Management: Pain being addressed with medication Peripheral Nerve Block: Patient did not receive a nerve block
--- NOTE | 2025-04-08 17:12 | PT.INIE ---
PT Notes Visit Reasons: L THR Physical Therapy Day Surgery Initial Evaluation Date: 04/08/2025 Referring Doctor: LEOPOLDO Talley PT Orders: PT CONSULT: S/P Ortho Surgery Precautions: WBAT through left LE with AD. Patient Profile/Admitting Diagnosis: Kavya is a 44-year-old female with degenerative joint disease of the left hip and status post left total hip arthroplasty on postoperative day 0. PMHX: All Active Problems (Updated 02/12/25 @ 09:12 by LEOPOLDO Grady) Osteoarthritis of left hip (Acute) Left hip pain (Acute) URI (upper respiratory infection) (Acute) Pre-diabetes (Acute) Fatigue (Acute) Obesity (Chronic) Eczema (Acute) Very rareInsomnia (Acute) Anxiety (Chronic) Depression (Chronic) Hypertension (Chronic) Medical History Depression HTN (hypertension) Acute appendicitis (05/06/13) Llaparoscopic appendectomy by Dr.Terry Akins 05-06-2013 Surgical History History of appendectomy H/O section Social History/Home Situation: Lives with family in a private home with 3 steps to enter with 1 rail. 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 Equipment Owned/DME: None Subjective: Lightheaded after stairs training. Objective: General Observation: Mepilex Ag over surgical incision. TEDS to B legs. Hubsand in room throughout session. Mental Status: A and O x 4 Pain: 3-4/10 in the L hip with movement ROM: Right Lower Extremity: Hip flexion WFL. Hip abduction WFL. Knee flexion WFL. Ankle dorsiflexion WFL. Ankle plantarflexion WFL. Left Lower Extremity: Hip flexion allowed up to 90 degrees. Hip abduction WFL. Knee flexion WFL. Ankle dorsiflexion WFL. Ankle plantarflexion WFL. Strength: Right Lower Extremity: Hip flexors 5/5. Hip abductors 5/5. Knee flexors 5/5. Knee extensors 5/5. Ankle dorsiflexors 5/5. Ankle plantarflexors 5/5. Left Lower Extremity:Hip flexors 3-/5. Hip abductors 5/5. Knee flexors 5/5. Knee extensors 5/5. Ankle dorsiflexors 5/5. Ankle plantarflexors 5/5. Sensation: Intact as to pain and ligght pressure in B LE Bed Mobility/Transfers: Minimal cueing provided for use of B hands as needed for support, movement sequence, AD management, and posture to reduce fall risk and minimize pain report Supine to sit stand by assist Sit to stand contact guard assist with FWW Stand to sit contact guard assist with FWW Bed to chair contact guard assist with FWW Gait: Facilitated safe and correct performance of level surface ambulation covering a distance of 100 feet using a front wheeled walker with reciprocal gait pattern, contact-guard assist provided with moderate verbal cueing given for safe and correct technique and limb movement sequence, AD management, and posture. Nurse Mendez provided wheelchair follow for safety. Stairs: Guided patient is a frequent negotiation of 3 x 4 inch steps and 3 x 6 inch steps while holding onto bilateral rails with contact-guard assist of PT and moderate verbal cueing for hand placement, limb movement sequence, and posture. Step to gait pattern. Patient reported increased lightheadedness at end of activity. Patient was immediately assisted back onto wheelchair for safety. Nurse Mendez indicated 80/[address] Garcia was right away updated of patient status. Balance: Static Sitting: Good Dynamic Sitting: Good Static Standing: Fair Dynamic Standing: Fair Special Tests: Mobility Limitations Standardized Measure [facility] AM-PAC 6 clicks Basic Mobility Inpatient Short Form: Raw Score: 22 CMS Score: 21% deficit Informed Consent/Education: Patient instructed in purpose of PT consult. Packet containing CINID exercise protocol has been given to patient. Education and training on initial set of exercises that can be done at home have been completed with patient. Trained patient with correct performance of exercises below to maximize motor control, joint flexibility, soft tissue extensibility of the R hip musculature to facilitate return to independent functional mobility performance. Access Code: [email or web address] URL: [email or web address] Date: 04/09/2025 Prepared by: Melvina Zapata Exercises - Gluteal Sets - 1 x daily - 7 x weekly - 1 sets - 10 reps - 5 hold - Supine Heel Slide - 1 x daily - 7 x weekly - 1 sets - 10 reps - 5 hold - Supine Ankle Pumps - 1 x daily - 7 x weekly - 1 sets - 10 reps - 5 hold - Seated March - 1 x daily - 7 x weekly - 1 sets - 10 reps - 5 hold - Seated Long Arc Quad - 1 x daily - 7 x weekly - 1 sets - 10 reps - 5 hold Assessment: Patient required the use of a front wheeled walker for all mobility ADL performance to maximize independence and reduce fall risk. Reported lightheadedness at end of stairs training with BP softening to 80/60 mmHg as taken by Nurse Vanessa after activity. Patient was seated back onto wheelchair immediately for safety. Patient presented with clinical signs and symptoms consistent with current/admitting diagnoses that have resulted to mobility limitations, gait instability, generalized weakness, and impairment of motor control as demonstrated by the following impairment level findings: 1. Decreased strength to left hipmajor muscle groups 2. Impaired standing balance 3. Limitation of joint range of motion in left hip Impairments are contributing to the following functional limitations: 1. Inability to safely ambulate without assistive device 2. Increase completion time for mobility ADL performance 3. Increased fall risk Patient is assessed as a [id number] moderate complexity based on the following: History: 44-year-old male with impairment level findings, functional limitations, and past medical history as indicated above Examination: Demonstrable impairment in strength, balance, and mobility level with underlying impairments and functional limitations as documented above Presentation: Evolving Decision Makin moderate complexity Goals: N/A. PT evaluation and 1-2 treatment sessions only for functional mobility training using recommended AD and for HEP instruction. Plan of Care/Treatment Plan: N/A. PT evaluation and 1-2 treatment session only for functional mobility training using recommended AD and for HEP instruction. DISCHARGE RECOMMENDATIONS: Home when medically cleared by orthopedic surgeon. Recommend outpatient PT services in order to optimize functional mobility outcomes and facilitate return to independent community ambulation without an assistive device. TREATMENT CODE/TIME: 97212 x 24 minutes for 1 unit (17:12-17:36). Thank you for the opportunity to participate in the care of this patient. Melvina Zapata PT, DPT, CLT [facility] [place], [place]
[2025-04-08] MEDS: Midodrine 2.5 MG TAB 5 MG PO ×2 (17:48→20:29)
[2025-04-08] MEDS: ceFAZolin 1 GM/50 ML BAG IVPB (20:26)
[2025-04-08] MEDS: Tranexamic Acid 650 MG TAB 1300 MG PO (20:28)
[2025-04-08] MEDS: Aspirin E.C. 81 MG TABEC PO (20:29)
[2025-04-08] MEDS: Citalopram 20 MG TAB 30 MG PO (20:30)
[2025-04-08] MEDS: Lactated Ringers 1,000 ML 1000 ML IV (23:12)
[2025-04-09 04:36] VITALS: BP 109/66; PULSE 97; RESP 20; TEMP 36.1; O2SAT 95
[2025-04-09] MEDS: ceFAZolin 1 GM/50 ML BAG IVPB (04:50)
[2025-04-09 07:30] LABS: HCT 28.6 % (36.0-46.0); HGB 8.7 g/dL (11.2-15.7); MCH 21.6 pg (27.0-33.0); MCHC 30.4 % (32.0-36.0); MPV 9.6 fL (8.0-11.0); Platelet Count 381 10^3/uL (130-400); RBC 4.03 10^6/uL (3.93-5.22); RDW 17.8 % (11.7-14.6); RDW-SD 45.2 fL; WBC 22.01 10^3/uL (4.4-10.8)
[2025-04-09 07:38] LABS: Anion Gap 9.6 mmol/L (3-11); BUN 18 mg/dL (7-18); CO2 24.4 mmol/L (21.0-32.0); Calcium 8.9 mg/dL (8.5-10.1); Chloride 104 mmol/L (98-107); Estimated GFR 71.69 (mL/min/1.73m2); Glucose 130 mg/dL (74-106); Potassium 4.7 mmol/L (3.5-5.1); Sodium 138 mmol/L (136-145)
[2025-04-09] MEDS: Docusate Sodium 100 MG CAP PO (07:52)
[2025-04-09] MEDS: Dexamethasone 4 MG TAB PO (07:53)
[2025-04-09] MEDS: Celecoxib 200 MG CAP PO (07:53)
[2025-04-09] MEDS: oxyCODONE 5 MG TAB PO (07:53)
[2025-04-09] MEDS: Aspirin E.C. 81 MG TABEC PO (07:54)
[2025-04-09] MEDS: Acetaminophen 500 MG TAB 1000 MG PO (07:54)
[2025-04-09] MEDS: Midodrine 2.5 MG TAB 5 MG PO (07:56)
[2025-04-09 08:04] VITALS: BP 109/68; PULSE 96; RESP 16; TEMP 36.3; O2SAT 98
[2025-04-09 08:40] LABS: MCV 71 fL (80-95)
--- NOTE | 2025-04-09 09:07 | PDOC.CMIN ---
Date of service: 04/09/25 Time of Service: 09:08 Care Management Initial Assmt Initial Assessment Reason for Hospitalization: L CINDI Functional Status/Living Situation Town of Residence: [place] Resides with: Spouse ([place]) Employment Status: Employed Instrumental Activities of Daily Living (ADLs): Independent Medications Medication Management: No Issues/Barriers identified Advance Directives Advance Directives: Do you have an Advance Directive: N 05/05/13, 23:55 AD On File at [facility]: N 05/05/13, 23:55 Date Asked 04/05/25 04/05/25, 19:11 AD Date Reviewed COLST On File at [facility] COLST Date Scanned Code Status Resuscitation Status Full Code Insurance Coverage/Financial Issues Insurance: [employer] Care Team Visit Care Team Role Provider Type Pravin Deal NP Primary Care Provider NURSE PRACTITIONER InPatient Blair Bailey Other Providers OTHER Andrew Garcia MD Attending Provider [facility] STAFF PHYSICIAN Discharge Potential Discharge Needs: Surgical F/U Appt Anticipated Barriers to Discharge: None Identified Patient/Family Education Needs: Review discharge instructions, discuss Ask Me Three Transportation: Private vehicle Plan: Anticipate Kavya will be discharged home with no new services. She will follow up with her surgeon and plan of care and transport with family. Social Determinants of Health Screening Will the Patient Participate in the Screening?: Declined to provide Do you worry about having a steady place to live?: no PFSH All Active Problems Osteoarthritis of left hip (Acute) Left hip pain (Acute) URI (upper respiratory infection) (Acute) Pre-diabetes (Acute) Fatigue (Acute) Obesity (Chronic) Eczema (Acute) Very rare Insomnia (Acute) Anxiety (Chronic) Depression (Chronic) Hypertension (Chronic) Medical History Depression HTN (hypertension) Acute appendicitis (05/06/13) Llaparoscopic appendectomy by Dr.Terry Akins 05-06-2013 Surgical History History of appendectomy H/O section Family History Mother , 53 No problems noted. Father No problems noted. Brother , 41 No problems noted. Maternal Grandfather , 57 Lung cancer Paternal Grandfather , 50 No problems noted. Maternal Grandmother No problems noted. Paternal Grandmother , 80 Breast cancer Brain cancer Social History Smoking/Tobacco Use Status: Never Second Hand Exposure: Yes Smoking risk assessment performed?: Yes Alcohol Intake: former Drug use: Never Substance use type: does not use Caregiver/Support person: No Household members: spouse and children Housing: house Communication Needs: None Do you need help understanding health information?: Never Pets and animals: Yes Pets and animals: dog(s) Sexually active: Yes Do you think of yourself as: straight/heterosexual Current gender identity: female What is your relationship status?: How often do you talk on the phone with friends or family?: once per week How often do you get together with friends or relatives?: once per week How often do you attend yarsani or sabianism services?: 1-3 times per year Do you belong to any clubs or organized social groups?: no Panel score (0-1 are the most socially isolated patients): 1 What type of physical activity do you participate in: walking Duration: 15-30 minutes/day Frequency: daily Brenda/Worship: No preference Special brenda needs: No Seatbelt use: sometimes Helmet use: Yes Helmet use: always Drive intox or ride w/intox 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
--- NOTE | 2025-04-09 09:55 | W.PM.DS.N ---
Date of service: 04/09/25 Time of Service: 09:55 DS: Diagnosis Discharge Diagnosis (1) Osteoarthritis of left hip: Status: Acute Discharge Plan Disposition Patient Disposition: Home Condition: Good Discharge Details Reason For Visit: L THR Attending Provider: Andrew Garcia Primary Care Provider: Pravin Deal Home Meds and New Rx's Prescriptions: New acetaminophen 500 mg tablet 1,000 mg PO TID Qty: 90 3RF aspirin 81 mg tablet,delayed release (DR/EC) 81 mg PO BID Qty: 60 0RF celecoxib 200 mg capsule 200 mg PO BID Qty: 60 0RF dexamethasone 4 mg tablet 4 mg PO DAILY Qty: 2 0RF docusate sodium 100 mg capsule 100 mg PO BID PRNQty: 28 0RF pantoprazole 40 mg tablet,delayed release (DR/EC) 40 mg PO DAILY Qty: 14 0RF oxycodone 5 mg tablet 5 mg PO Q4H MDD 6 tabs PRN (Reason: pain) Qty: 12 0RF Continued (DME) Aerochamber MV Spacer See Rx Instructions .Route Qty: 1 0RF Rx Instructions: As directed triamcinolone acetonide 0.1 % cream 1 applic topical BID Qty: 30 1RF albuterol sulfate 90 mcg/actuation HFA aerosol inhaler 2 puff inhalation 6XD PRN (Reason: shortness of breath or wheezing) Qty: 8.5 0RF citalopram 20 mg tablet 30 mg PO HS lisinopril 30 mg tablet 30 mg PO HS Discharge Instructions Additional Instructions: Total Hip Discharge Instructions Activity: The most important activity is to walk. You should try to take short walks a few times a day. You have no restrictions on movement or positioning, but do not try to force what you do. You will find some stiffness and weakness with hip flexion (lifting your knee). Do not try to strengthen this too early, continue to practice walking and stairs and this will come. - Outpatient physical therapy can be helpful to help return you to a normal gait and improve your flexibility and strength. This can start around 2 weeks. For some patients, it?s not necessary. Usually this is determined at the time of discharge or at the first post-operative visit. - You should wear the SULEIMAN hose on both legs for 2 weeks. Dressing: Keep the surgical dressing in place for at least one week. After the first week it may be removed and replace with light gauze and tape or nothing. It may get wet after 3 days but avoid soaking the dressing. If it gets wet, just lightly pat dry. It is important to always keep some gauze between skin folds, especially when you are sitting. Spend some time with the wound exposed when you are lying flat as the incision does wrinkle onto itself. Medications: - You should take Tylenol and an anti-inflammatory Celebrex as your primary pain control medications. If the Celebrex is too expensive or not covered, please call the office for another alternative (Advil/Ibuprofen or Naproxen/Aleve). - You have been prescribed a stronger pain medication Oxycodone for breakthrough pain, take as needed as prescribed. - You have also been prescribed a stomach acid reduction agent Pantoprozole to help reduce stomach acid and reflux. - You have also been prescribed Decadron to help with post-operative nausea and pain. You will take this for two days starting tomorrow. - You will be taking Aspirin 81mg twice a day for DVT prevention unless instructed otherwise. - If you have constipation you should take Colace or Miralax (both [id number]). It takes most people 3-4 days to have a bowel movement. Follow-up: 2 weeks If you have any acute concerns or questions, please do not hesitate to contact the office at [phone]. You may contact Dr. Garcia with any questions after hours through the hospital at [phone] or on his cell phone at [phone]. Stand Alone Forms: Anesthesia Discharge InstElaine, Hedy Carvajal ([facility]) Referrals: Andrew Garcia MD [ [facility] STAFF PHYSICIAN, Orthopaedic Surgical] - 04/23/25 9:45 am Equipment/Supplies: Walker Activity:: Activity as Tolerated Shower/Bathe:: 72 hours Diet:: As Tolerated Discharge Orders Discharge Orders: Discharge Order (Routine); Ordered 04/09/25 Ordered By: Fredi Guillermo DS: Summary Time Spent with Patient providing and/or coordinating discharge services: Less than 30 minutes Status at Discharge Functional status at discharge: uses cane/walker Overall status at discharge: patient is progressing back to baseline Mental Status: mental status grossly normal Speech and Movement: speech and movement normal Mood: congruent mood Affect: normal affect Exam Narrative Exam Narrative: Sitting up in the chair. No acute distress. Alert and orient x 3. Left lower extremity dressings clean dry and intact. No sign of ecchymosis. No pain with internal and external rotation of the hip. Psych Mental Status: mental status grossly normal Speech and Movement: speech and movement normal Mood: congruent mood Affect: normal affect DS: Data Vitals/I&O Vitals and I&O: Vital Signs Temperature 36.3 C L 04/09/25 08:04 Temperature Source Temporal Artery Scan 04/09/25 08:04 Pulse 96 H 04/09/25 08:04 Pulse Rhythm Regular 04/08/25 10:33 Pulse 80 04/08/25 15:11 Respiratory Rate 16 04/09/25 08:04 Respiratory Effort Normal 04/08/25 18:13 Respiratory Depth Normal 04/08/25 18:13 Respiratory Pattern Normal 04/08/25 18:13 Blood Pressure 109/68 04/09/25 08:04 Blood Pressure Mean 81 04/09/25 08:04 Blood Pressure Position Supine 04/08/25 15:50 Pulse Oximetry 98 04/09/25 08:04 Respiratory End-tidal CO2 45 04/08/25 15:11 Oxygen Delivery Method Room Air 04/09/25 08:04 Oxygen Flow Rate 0 04/09/25 08:04 Pain Level 5 04/09/25 08:04 Comment nurse notified 04/08/25 19:50 Intake & Output 04/08/25 04/08/25 04/09/25 11:59 23:59 11:59 Intake Total 1500 / 1500 Output Total 200 / 200 600 / 600 Balance 1300 / 1300 -600 / -600 Weight 142 kg Intake: IV 800 / 800 Oral 700 / 700 Output: Urine 600 / 600 Emesis 0 / 0 Estimated Blood Loss 200 / 200 Other: Urine Color Yellow Urine Appearance Clear Urine Odor Normal Emesis Description None Data Completed and Pending Labs on day of discharge: Labs from last 24 hours 04/09/25 06:33 WBC 22.01 H RBC 4.03 Hgb 8.7 L Hct 28.6 L MCV 71 L MCH 21.6 L MCHC 30.4 L RDW 17.8 H Plt Count 381 MPV 9.6 Sodium 138 Potassium 4.7 Chloride 104 Carbon Dioxide 24.4 Anion Gap 9.6 BUN 18 Creatinine 1.0 Est GFR (CKD-EPI 2020) 71.69 Glucose 130 H Calcium 8.9 PFSH All Active Problems Osteoarthritis of left hip (Acute) Left hip pain (Acute) URI (upper respiratory infection) (Acute) Pre-diabetes (Acute) Fatigue (Acute) Obesity (Chronic) Eczema (Acute) Very rare Insomnia (Acute) Anxiety (Chronic) Depression (Chronic) Hypertension (Chronic) Medical History Depression HTN (hypertension) Acute appendicitis (05/06/13) Llaparoscopic appendectomy by Dr.Terry Akins 05-06-2013 Surgical History History of appendectomy H/O section Family History Mother , 53 No problems noted. Father No problems noted. Brother , 41 No problems noted. Maternal Grandfather , 57 Lung cancer Paternal Grandfather , 50 No problems noted. Maternal Grandmother No problems noted. Paternal Grandmother , 80 Breast cancer Brain cancer Social History Smoking/Tobacco Use Status: Never Second Hand Exposure: Yes Smoking risk assessment performed?: Yes Alcohol Intake: former Drug use: Never Substance use type: does not use Caregiver/Support person: No Household members: spouse and children Housing: house Communication Needs: None Do you need help understanding health information?: Never Pets and animals: Yes Pets and animals: dog(s) Sexually active: Yes Do you think of yourself as: straight/heterosexual Current gender identity: female What is your relationship status?: How often do you talk on the phone with friends or family?: once per week How often do you get together with friends or relatives?: once per week How often do you attend orthodox or samaritan services?: 1-3 times per year Do you belong to any clubs or organized social groups?: no Panel score (0-1 are the most socially isolated patients): 1 What type of physical activity do you participate in: walking Duration: 15-30 minutes/day Frequency: daily Brenda/Zoroastrianism: No preference Special brenda needs: No Seatbelt use: sometimes Helmet use: Yes Helmet use: always Drive intox or ride w/intox dedicated intermodal truck driver: No Do you feel safe at home: Yes Do you feel safe in your relationship?: Yes Time Spent with Patient Time Spent with Patient: <45 minutes Time was spent: preparing to see the patient(eg.review tests) and counseling the patient
--- NOTE | 2025-04-09 12:17 | PT.INTREAT ---
PT Notes Visit Reasons: L THR Inpatient Physical Therapy Treatment Note [facility] Date: 04/09/2025 PRECAUTIONS:WBAT LLE SUBJECTIVE: Pt states she feels better than she did after her surgery when she was lightheaded and dizzy. She states seh is now ready to go home OBJECTIVE: Pt initially presented on way to the bathroom with her walker. Her and daughter present. Pt reapproached after self care, MD present and discussing discharge after PT session.? PAIN:left hip 11/10 Therapeutic Activities (12729o[]): Direct one-on-one instruction in dynamic activities to improve functional performance. ? BED MOBILITY/TRANSFERS? Rolling L/R: independent Supine-sit: Independent? Sit-supine: independent ? Sit-stand: independent ? Stand-sit: independent? Bed-Chair: modified independent with FWW ? Chair-bed: modified Independent with FWW Provided skilled cues and instruction on performance and technique throughout. Gait Training (61660v[]): Direct one-on-one instruction and skilled instruction in: [] employing an assistive device [] modified weight-bearing status [] movement sequencing [] turning and movement with proper form [] Provided verbal cues for equipment management and technique [] Provided instruction in gait pattern [] Patient education regarding pacing and breathing techniques to maximize activity tolerance? GAIT? Assistive Device: FWW ? Weight bearing: WBAT LLE Assist: Mod I ? Distance:? 200 feet? Deviation: Reduced left step length, slow chris ? STAIRS:5 steps x 2 with 1 rail SBA and cues for sequencing? Therex: review of CINDI protocol, glut sets, heel slides, marching, ankle pumps, quad sets, hip abduction x 10 reps? ASSESSMENT:?Pt has progressed to Florentin level with FWW and is safe/appropriate for discharge to home. Her is able to provide SBA on stairs. PLAN: discharge to home TREATMENT CODE/TIME: [id number],[id number]/ [id number] DISCHARGE RECOMMENDATION: [home with HEP and no services
--- NOTE | 2025-04-09 15:33 | PDOC.CMPRO ---
Date of service: 04/09/25 Time of Service: 15:33 Care Management Progress Note Progress Note Text Progress Note Text: Carlyn was admitted for a left total hip replacement on 04/08/25. The procedure went well and Kavya was back to baseline this morning. She worked with PT and was able to ambulate with a walker. She will be discharged home with no new services and will follow up with her surgeon in 2 weeks. Social Determinants of Health Screening Will the Patient Participate in the Screening?: Declined to provide Do you worry about having a steady place to live?: no
== END 2025-04-09 10:49 | disposition home or self-care (01) ==
LOC: SUR 12:09 → MS 18:08
PROVIDERS: PCP Nurse Practitioner Family; Visit Provider Student in an Organized Health Care Education/Training Program
PROC: (CPT 27130; principal; 2025-04-08 13:45)
DX: M16.12 Unilateral primary osteoarthritis, left hip (principal)
CPT/HCPCS: 27130; 20985; 36415; 80048; 85027; 97162; 97530; 73501; 94760; C1776; J0690; J1100; J1885; J2003; J2060; J2250; J2371; J2401; J2405; J2704; J3010; J8540

== ENCOUNTER 2025-04-23 10:05 | Outpatient (CLI) | payer OTHER, SELFPAY ==
--- NOTE | 2025-04-23 08:45 | DI.RAD_ITS ---
Exam(s) XR HIP LT COMPLETE AP PELVIS EXAM: XR HIP LT COMPLETE AP PELVIS CLINICAL HISTORY: 1ST POST OP S/P L CINDI. TECHNIQUE: 2D digital imaging was performed. Two images were obtained. AP pelvis and lateral left hip views were obtained. COMPARISON: CR XR HIP LT COMPLETE AP PELVIS from 11/27/2024 CR XR PELVIS AP from 03/27/2025 XA XR HIP LT IN OR from 04/08/2025 FINDINGS: BONES: There are stable post operative changes of a left total hip arthroplasty present. No fracture or dislocation. JOINTS: The orthopedic hardware is in good position. No evidence of hardware loosening. SOFT TISSUE: Normal. IMPRESSION: Stable left total hip arthroplasty. DATA REPOSITORY: RADIATION DOSE DELIVERED:
== END 2025-04-23 10:06 | disposition home or self-care (01) ==
LOC: DIORS 10:05
PROVIDERS: PCP Nurse Practitioner Family; Visit Provider Physician Assistant
DX: Z96.642 Presence of left artificial hip joint (principal)
CPT/HCPCS: 73502